=== PATIENT | female | born 1945 | race Hispanic/Latino ===

== ENCOUNTER 2017-10-21 12:56 | Outpatient (CLI) | payer MEDICARE | END 2017-10-21 12:57 | disposition home or self-care (01) | LOC: BICCT 12:56 | PROVIDERS: ATTEND Internal Medicine | DX: J32.9 Chronic sinusitis, unspecified (principal); M26.623 Arthralgia of bilateral temporomandibular joint ==

== ENCOUNTER 2018-07-13 13:19 | Outpatient (CLI) | payer MEDICARE | END 2018-07-13 13:20 | disposition home or self-care (01) | LOC: BICMAMMO 13:19 | PROVIDERS: ATTEND Internal Medicine | DX: Z12.31 Encounter for screening mammogram for malignant neoplasm of breast (principal); R92.1 Mammographic calcification found on diagnostic imaging of breast; Z80.3 Family history of malignant neoplasm of breast | CPT/HCPCS: 77063; 77067 ==

== ENCOUNTER 2019-02-24 10:52 | Outpatient (CLI) | payer MEDICARE ==
--- NOTE | 2019-02-24 12:46 | RAD ---
CHEST 2 VIEWS: Date: 02/24/19 HISTORY: Cough. COMPARISON: Chest radiograph from 2012. FINDINGS: Lungs are clear. No pneumothorax or effusion. Cardiac silhouette and mediastinal contours within norm al limits. Calcified right hilar lymph nodes. No acute osseous abnormality. IMPRESSION: No acute intrathoracic abnormality. POS: [facility]
== END 2019-02-24 10:53 | disposition home or self-care (01) ==
LOC: BICRAD 10:52
PROVIDERS: ATTEND Internal Medicine
DX: R05 Cough (principal)
CPT/HCPCS: 71046

== ENCOUNTER 2020-07-17 12:58 | Outpatient (CLI) | payer MEDICARE ==
--- NOTE | 2020-07-17 14:10 | MMO ---
Bilateral MAMMO Bilat Screen [facility]. CLINICAL HISTORY: Patient is 74 years old and is seen for screening. The patient has no family history of breast cancer. The patient has no personal history of cancer. VIEWS: The views performed were: bilateral craniocaudal with tomosynthesis and bilateral mediolateral oblique with tomosynthesis. FILMS COMPARED: The present examination has been compared to prior imaging studies performed at [facility] on 03/29/2015, 04/05/2016, 04/07/2017 and 07/13/2018. This study has been interpreted with the assistance of computer-aided detection. MAMMOGRAM FINDINGS: There are scattered fibroglandular densities. There are no suspicious masses, suspicious calcifications, or new areas of architectural distortion. IMPRESSION: THERE IS NO MAMMOGRAPHIC EVIDENCE OF MALIGNANCY. A ROUTINE FOLLOW-UP MAMMOGRAM IN 1 YEAR IS RECOMMENDED. THE RESULTS OF THIS EXAM WERE SENT TO THE PATIENT. ACR BI-RADS Category 1 - Negative MAMMOGRAPHY NOTE: 1. A negative mammogram report should not delay a biopsy if a dominant of clinically suspicious mass is present. 2. Approximately 10% to 15% of breast cancers are not detected by mammography. 3. Adenosis and dense breasts may obscure an underlying neoplasm. Reported by: DIXON FRANK MD Electonically Signed: [id number]
== END 2020-07-17 12:59 | disposition home or self-care (01) ==
LOC: BICMAMMO 12:58
PROVIDERS: ATTEND Family Medicine
DX: Z12.31 Encounter for screening mammogram for malignant neoplasm of breast (principal)
CPT/HCPCS: 77063; 77067

== ENCOUNTER 2021-12-10 11:47 | Outpatient (CLI) | payer MEDICARE | END 2021-12-10 11:48 | disposition home or self-care (01) | LOC: BICMAMMO 11:47 | PROVIDERS: ATTEND Family Medicine | DX: Z12.31 Encounter for screening mammogram for malignant neoplasm of breast (principal) | CPT/HCPCS: 77063; 77067 ==

== ENCOUNTER 2022-12-27 13:51 | Outpatient (CLI) | payer MEDICARE | END 2022-12-27 13:52 | disposition home or self-care (01) | LOC: BICMAMMO 13:51 | PROVIDERS: ATTEND Internal Medicine Cardiovascular Disease | DX: Z12.31 Encounter for screening mammogram for malignant neoplasm of breast (principal) | CPT/HCPCS: 77063; 77067 ==

== ENCOUNTER 2023-07-03 09:06 | Outpatient (CLI) | payer MEDICARE ==
[2023-07-03] MEDS ORDERED: diphenhydrAMINE 50 MG/ML VIAL ONE (10:47)
[2023-07-03] MEDS ORDERED: Iopamidol 370 76% 100 ML VIAL ONE (13:45)
== END 2023-07-03 09:07 | disposition home or self-care (01) ==
LOC: CT 09:06
PROVIDERS: ATTEND Otolaryngology
DX: H90.3 Sensorineural hearing loss, bilateral (principal); R20.0 Anesthesia of skin; J32.3 Chronic sphenoidal sinusitis
CPT/HCPCS: 70470; 70491; J1200; Q9967

== ENCOUNTER 2023-10-21 11:19 | Inpatient (IN) | payer MEDICARE ==
[2023-10-21] MEDS ORDERED: Ondansetron PF 4 MG/2 ML Vial IVP PRN (12:13)
[2023-10-21] MEDS ORDERED: traMADol HCl 50 MG TAB PO PRN ×2 (12:13→18:52)
[2023-10-21] MEDS ORDERED: Piperacillin/Tazobactam 4.5 GM VIAL ONE (12:17)
[2023-10-21] MEDS ORDERED: Morphine 4 MG/ML VIAL ONE (12:17)
[2023-10-21] MEDS ORDERED: Sodium Chloride 0.9% 100 ML ONE ×2 (12:17→14:27)
[2023-10-21] MEDS ORDERED: Ondansetron PF 4 MG/2 ML Vial ONE ×2 (12:17→15:47)
[2023-10-21 12:34] LABS: #Basophils Less than 0.03 10x3/uL (0.0-0.2); %Basophils 0.2 % (0.0-1.0); %Eosinophils 0.8 % (0.0-10.0); %Monocytes 4.3 % (0.0-10.0); %Neutrophils 82.3 % (42.0-75.0); Hematocrit 35.7 % (36.0-47.0); Hemoglobin 12.2 g/dL (12.0-16.0); Mean Corpuscular HGB CONC 34.2 g/dL (32.0-36.0); Mean Corpuscular Hemoglobin 29.7 pg (27.0-31.0); Mean Corpuscular Volume 86.9 fL (78.0-98.0); Mean Platelet Volume 9.3 fL (7.4-10.4); Platelet Count 493 10x3/uL (130-400); RBC Distribution Width 14.7 % (11.5-14.5); Red Blood Cell (RBC) Count 4.11 mill/uL (4.20-5.40)
[2023-10-21 12:56] LABS: Globulin 3.7 g/dL (2.4-3.5)
[2023-10-21 13:00] LABS: ALT (SGPT) 37 U/L (8-55); AST (SGOT) 19 U/L (5-34); Albumin 2.7 g/dL (3.4-4.8); Alkaline Phosphatase 75 U/L (40-110); Anion Gap 12 mmol/L (10-20); BUN (Urea Nitrogen) 5 mg/dL (9.8-20.1); Bilirubin, Total 0.8 mg/dL (0.2-1.2); Calc. Creatinine Clearance 0 mL/min (70-130); Calcium 8.9 mg/dL (7.8-10.44); Carbon Dioxide 22 mmol/L (23-31); Chloride 103 mmol/L (98-107); Estimated GFR 92; Glucose 133 mg/dL (83-110); Potassium 3.3 mmol/L (3.5-5.1); Protein, Total 6.4 g/dL (5.8-8.1); Sodium 134 mmol/L (136-145)
[2023-10-21] MEDS ORDERED: fentaNYL 50 mcg/mL 1 mL Vial ONE ×3 (13:36→17:42)
[2023-10-21] MEDS ORDERED: cefOXitin 2 GM VIAL ONE (14:26)
[2023-10-21] MEDS ORDERED: PROPOFOL 20 ML ONE (14:49)
[2023-10-21] MEDS ORDERED: Rocuronium Bromide 10 MG/ML (10ML VIAL) ONE (14:49)
[2023-10-21] MEDS ORDERED: SUCCINYLCHOLINE/SOD CL,ISO/PF 200 MG/10 ML SYRINGE FS ONE (14:49)
[2023-10-21] MEDS ORDERED: Lidocaine 1% PF 5 ML VIAL ONE (14:49)
[2023-10-21] MEDS ORDERED: fentaNYL PF 100 MCG/2 ML SYRINGE ONE (14:49)
[2023-10-21] MEDS ORDERED: Vasopressin 20 UNITS/ML VIAL ONE (15:27)
[2023-10-21] MEDS ORDERED: PHENYLEPHRINE-NS 100 MCG/ML 10 ML SYRINGE ONE (15:29)
[2023-10-21] MEDS ORDERED: Dexamethasone 4 mg/ml Vial ONE (15:47)
[2023-10-21] MEDS ORDERED: SUGAMMADEX SODIUM 200 MG/2 ML VIAL ONE (16:44)
[2023-10-21] MEDS ORDERED: HYDROmorphone 0.5 MG/0.5 ML SYRINGE SLOW IVP PRN (17:04)
[2023-10-21] MEDS ORDERED: HYDROmorphone 0.5 MG/0.5 ML SYRINGE ONE (18:12)
[2023-10-21 20:09] VITALS: BMI 33.3
[2023-10-21] MEDS: Morphine 4 MG/ML VIAL SLOW IVP PRN (20:25)
[2023-10-21] MEDS: Atorvastatin Calcium 10 MG TAB PO SCH (20:25)
[2023-10-21] MEDS: Potassium Chloride 20 MEQ in Premix 1 BAG IVPB SCH (20:26)
[2023-10-21] MEDS: Sodium Chloride 0.9% 1,000 ML IV SCH (20:31)
[2023-10-21] MEDS: Piperacillin/Tazobactam 3.375 GM in Sodium Chloride 0.9% 100 ML IVPB SCH (20:37)
[2023-10-22] MEDS: traMADol HCl 50 MG TAB PO SCH (00:30)
[2023-10-22 06:28] LABS: Hematocrit 35.7 % (36.0-47.0); Hemoglobin 12.1 g/dL (12.0-16.0); Mean Corpuscular HGB CONC 33.9 g/dL (32.0-36.0); Mean Corpuscular Volume 88.6 fL (78.0-98.0); Mean Platelet Volume 9.6 fL (7.4-10.4); Platelet Count 567 10x3/uL (130-400); RBC Distribution Width 15.4 % (11.5-14.5); Red Blood Cell (RBC) Count 4.03 mill/uL (4.20-5.40)
[2023-10-22 06:46] LABS: Phosphorus 4.4 mg/dL (2.3-4.7)
[2023-10-22 06:49] LABS: Anion Gap 15 mmol/L (10-20); BUN (Urea Nitrogen) 10 mg/dL (9.8-20.1); Calc. Creatinine Clearance 72 mL/min (70-130); Calcium 7.9 mg/dL (7.8-10.44); Carbon Dioxide 19 mmol/L (23-31); Chloride 106 mmol/L (98-107); Estimated GFR 71; Glucose 146 mg/dL (83-110); Magnesium 1.5 mg/dL (1.6-2.6); Potassium 4.4 mmol/L (3.5-5.1); Sodium 136 mmol/L (136-145)
[2023-10-22 06:52] LABS: Band 21 % (5-11); Burr Cells SLIGHT = 2-5 cells HPF (0-1); Lymphocytes 2 % (21-51); Monocytes 7 % (0-10); Neutrophil 70 % (42-75); Platelet Adequacy Comment Platelets Increased
[2023-10-22] MEDS: Magnesium Sulfate In Water 4 GM in Premix 1 BAG IVPB SCH (08:43)
[2023-10-22] MEDS: Famotidine/PF 20 mg/2ml Vial SLOW IVP SCH (08:44)
[2023-10-22] MEDS: Enoxaparin 40 MG (0.4 mL) SYRINGE SC SCH (08:44)
[2023-10-22] MEDS: Aspirin Chewable 81 MG TAB PO SCH (08:44)
[2023-10-22 14:42] VITALS: BMI 33.3
[2023-10-23] MEDS: Losartan 25 MG TAB PO SCH (10:24)
[2023-10-23] MEDS: Famotidine 20 MG TAB PO SCH (10:24)
[2023-10-23] MEDS ORDERED: Acetaminophen 325 MG TAB PO SCH (12:00)
[2023-10-23] MEDS: Acetaminophen 500 MG TAB PO SCH (13:30)
[2023-10-23] MEDS: Ketorolac Tromethamine 30 MG (1 mL) VIAL ONE (13:33)
[2023-10-23] MEDS: Lactated Ringer's 1,000 ML IV SCH (13:41)
[2023-10-23] MEDS ORDERED: Ibuprofen 200 MG TAB PO SCH (14:00)
[2023-10-23] MEDS: Ketorolac Tromethamine 30 MG (1 mL) VIAL IVP SCH (18:48)
[2023-10-23] MEDS: Phenol 177 ML BOT PO PRN (23:26)
[2023-10-24 05:02] LABS: #Basophils 0.03 10x3/uL (0.0-0.2); %Basophils 0.2 % (0.0-1.0); %Eosinophils 2.7 % (0.0-10.0); %Lymphocytes 5.3 % (21.0-51.0); %Monocytes 6.7 % (0.0-10.0); %Neutrophils 84.6 % (42.0-75.0); Hematocrit 32.2 % (36.0-47.0); Hemoglobin 10.9 g/dL (12.0-16.0); Mean Corpuscular HGB CONC 33.9 g/dL (32.0-36.0); Mean Corpuscular Hemoglobin 29.5 pg (27.0-31.0); Mean Corpuscular Volume 87.3 fL (78.0-98.0); Mean Platelet Volume 9.2 fL (7.4-10.4); Platelet Count 541 10x3/uL (130-400); RBC Distribution Width 15.5 % (11.5-14.5); Red Blood Cell (RBC) Count 3.69 mill/uL (4.20-5.40)
[2023-10-24 05:27] LABS: Anion Gap 14 mmol/L (10-20); BUN (Urea Nitrogen) 14 mg/dL (9.8-20.1); Calc. Creatinine Clearance 94 mL/min (70-130); Calcium 8.7 mg/dL (7.8-10.44); Carbon Dioxide 20 mmol/L (23-31); Chloride 110 mmol/L (98-107); Estimated GFR 92; Glucose 86 mg/dL (83-110); Potassium 4.1 mmol/L (3.5-5.1); Sodium 140 mmol/L (136-145)
[2023-10-24] MEDS ORDERED: Morphine 4 MG/ML VIAL SLOW IVP PRN (09:39)
[2023-10-24] MEDS: Acetaminophen 500 MG TAB PO SCH ×2 (11:53→18:07)
[2023-10-24] MEDS: traMADol HCl 50 MG TAB PO PRN (21:02)
[2023-10-25 05:47] LABS: #Basophils 0.03 10x3/uL (0.0-0.2); %Basophils 0.2 % (0.0-1.0); %Eosinophils 0.9 % (0.0-10.0); %Lymphocytes 3.3 % (21.0-51.0); %Monocytes 6.8 % (0.0-10.0); %Neutrophils 88.2 % (42.0-75.0); Hemoglobin 11.2 g/dL (12.0-16.0); Mean Corpuscular HGB CONC 32.9 g/dL (32.0-36.0); Mean Corpuscular Hemoglobin 29.5 pg (27.0-31.0); Mean Corpuscular Volume 89.5 fL (78.0-98.0); Mean Platelet Volume 9.1 fL (7.4-10.4); Platelet Count 627 10x3/uL (130-400); RBC Distribution Width 15.3 % (11.5-14.5)
[2023-10-25] MEDS: Losartan 25 MG TAB PO SCH (08:23)
[2023-10-25] MEDS: Famotidine 20 MG TAB PO SCH (21:45)
[2023-10-26] MEDS: Amoxicillin/Potassium Clav 875 MG TAB PO SCH ×2 (09:46→20:35)
[2023-10-26] MEDS: Ibuprofen 600 MG TAB PO PRN (09:47)
[2023-10-26] MEDS: Saccharomyces boulardii 250 MG CAP PO SCH (09:48)
[2023-10-26] MEDS ORDERED: traMADol HCl 50 MG TAB PO PRN (11:21)
[2023-10-26] MEDS ORDERED: Acetaminophen 500 MG TAB PO PRN (11:21)
[2023-10-27] MEDS: Ibuprofen 200 MG TAB PO PRN (00:05)
[2023-10-27] MEDS: Pantoprazole DR 40 MG TAB PO SCH (08:42)
[2023-10-27] MEDS: Losartan 25 MG TAB PO SCH (08:42)
[2023-10-28 15:18] VITALS: BP 133/77; TEMP 98.5
== END 2023-10-28 18:25 | disposition home or self-care (01) | DRG 908 ==
LOC: ERS 11:19 → SDC/OP 13:17 → SJJU 13:17
PROVIDERS: ADMIT Surgery; ATTEND Surgery
PROC: 0WQFXZZ Repair Abdominal Wall, External Approach (ICD-10-PCS; principal; 2023-10-22)
PROC: 3E033XZ Introduction of Vasopressor into Peripheral Vein, Percutaneous Approach (ICD-10-PCS; 2023-10-22)
DX: T81.32XA Disruption of internal operation (surgical) wound, not elsewhere classified, initial encounter (principal); K91.71 Accidental puncture and laceration of a digestive system organ or structure during a digestive system procedure; K59.00 Constipation, unspecified; I10 Essential (primary) hypertension; E78.5 Hyperlipidemia, unspecified; E11.9 Type 2 diabetes mellitus without complications; D72.829 Elevated white blood cell count, unspecified; E87.8 Other disorders of electrolyte and fluid balance, not elsewhere classified; Z98.890 Other specified postprocedural states; Z90.49 Acquired absence of other specified parts of digestive tract
CPT/HCPCS: 36415; 36416; 80048; 80053; 83735; 84100; 85025; 94760; 96374; 96375; 97139; J0694; J1100; J1170; J1650; J1885; J2270; J2405; J2543; J2704; J3010; J3475; J3480; J3490; J7050; J7120; S0028

== ENCOUNTER 2023-12-02 09:24 | Outpatient (CLI) | payer MEDICARE | END 2023-12-02 09:25 | disposition home or self-care (01) | LOC: CT 09:24 | PROVIDERS: ATTEND Surgery | DX: K65.1 Peritoneal abscess (principal); K57.30 Diverticulosis of large intestine without perforation or abscess without bleeding; Z90.49 Acquired absence of other specified parts of digestive tract; Z90.710 Acquired absence of both cervix and uterus; R14.0 Abdominal distension (gaseous) | CPT/HCPCS: 74177 ==

== ENCOUNTER 2023-12-02 10:59 | Inpatient (IN) | payer MEDICARE ==
[2023-12-02 12:57] LABS: #Basophils 0.04 10x3/uL (0.0-0.2); %Basophils 0.4 % (0.0-1.0); %Eosinophils 1.3 % (0.0-10.0); %Lymphocytes 23.1 % (21.0-51.0); %Monocytes 8.5 % (0.0-10.0); %Neutrophils 66.3 % (42.0-75.0); Hematocrit 27.3 % (36.0-47.0); Mean Platelet Volume 9.5 fL (7.4-10.4); Platelet Count 447 10x3/uL (130-400)
[2023-12-02 13:03] LABS: ALT (SGPT) 5 U/L (8-55); AST (SGOT) 22 U/L (5-34); Albumin 2.4 g/dL (3.4-4.8); Alkaline Phosphatase 75 U/L (40-110); Anion Gap 11 mmol/L (10-20); BUN (Urea Nitrogen) 10 mg/dL (9.8-20.1); Bilirubin, Total 0.5 mg/dL (0.2-1.2); Calc. Creatinine Clearance 0 mL/min (70-130); Calcium 8.7 mg/dL (7.8-10.44); Carbon Dioxide 21 mmol/L (23-31); Chloride 107 mmol/L (98-107); Estimated GFR 93; Globulin 3.8 g/dL (2.4-3.5); Glucose 97 mg/dL (83-110); Lipase 23 U/L (8-78); Potassium 3.3 mmol/L (3.5-5.1); Protein, Total 6.2 g/dL (5.8-8.1); Sodium 136 mmol/L (136-145)
[2023-12-02] MEDS ORDERED: Piperacillin/Tazobactam 4.5 GM VIAL ONE ×2 (13:35→14:31)
[2023-12-02] MEDS ORDERED: Sodium Chloride 0.9% 100 ML ONE ×2 (13:37→14:31)
[2023-12-02] MEDS ORDERED: Ondansetron PF 4 MG/2 ML Vial IVP PRN (13:44)
[2023-12-02] MEDS ORDERED: traMADol HCl 50 MG TAB PO PRN (13:44)
[2023-12-02] MEDS ORDERED: Morphine 4 MG/ML VIAL SLOW IVP PRN (13:56)
[2023-12-02 14:18] LABS: Bilirubin Negative (Negative); Blood, Urine Negative (Negative); CAUTI Indications for Culture Dysuria,urgency,freq; Clarity Clear (Clear); Glucose, Urine (Dipstick) Normal (Negative); Ketone, Urine Negative (Negative); Leukocyte 250 Leu/uL (Negative); Nitrite Negative (Negative); Protein, Urine (Dipstick) 10 mg/dL (Neg-Trace); Squamous Epithelial None Seen HPF (0-3); Urobilinogen Normal mg/dL (Less than 2); WBC/HPF Greater than 50 HPF (0-3); pH, Urine 7.5 (5.0-9.0)
[2023-12-02 14:35] LABS: Bacteria/HPF 4+ HPF (None Seen)
[2023-12-02 14:37] LABS: Specific Gravity, Urine 1.044 (1.002-1.036); Urine Culture Reflex Yes Yes
[2023-12-02 16:45] VITALS: BMI 29.7
[2023-12-02] MEDS: Potassium Chloride 20 MEQ in Premix 1 BAG IVPB SCH (19:26)
[2023-12-02] MEDS: Sodium Chloride 0.9% 1,000 ML IV SCH (19:27)
[2023-12-02] MEDS: TETANUS, DIPHTHERIA TOX,ADULT (TDVAX) 0.5 ML VIAL IM ONE (19:36)
[2023-12-02] MEDS: Acetaminophen 325 MG TAB PO SCH (22:56)
[2023-12-02] MEDS: Aspirin Chewable 81 MG TAB PO SCH (22:56)
[2023-12-02] MEDS: Atorvastatin Calcium 10 MG TAB PO SCH (22:56)
[2023-12-03 05:28] LABS: #Basophils 0.03 10x3/uL (0.0-0.2); %Basophils 0.4 % (0.0-1.0); %Eosinophils 2.8 % (0.0-10.0); %Lymphocytes 23.7 % (21.0-51.0); %Monocytes 11.1 % (0.0-10.0); %Neutrophils 61.6 % (42.0-75.0); Hematocrit 25.9 % (36.0-47.0); Hemoglobin 8.7 g/dL (12.0-16.0); Mean Corpuscular HGB CONC 33.6 g/dL (32.0-36.0); Mean Corpuscular Hemoglobin 30.2 pg (27.0-31.0); Mean Corpuscular Volume 89.9 fL (78.0-98.0); Platelet Count 377 10x3/uL (130-400); RBC Distribution Width 16.9 % (11.5-14.5); Red Blood Cell (RBC) Count 2.88 mill/uL (4.20-5.40)
[2023-12-03 05:46] LABS: INR-International Normal Ratio 1.2; Prothrombin Time 15.3 sec (12.0-14.7)
[2023-12-03 05:47] LABS: Anion Gap 12 mmol/L (10-20); BUN (Urea Nitrogen) 7 mg/dL (9.8-20.1); Calc. Creatinine Clearance 98 mL/min (70-130); Calcium 8.1 mg/dL (7.8-10.44); Carbon Dioxide 19 mmol/L (23-31); Chloride 111 mmol/L (98-107); Estimated GFR 95; Glucose 98 mg/dL (83-110); Potassium 3.1 mmol/L (3.5-5.1); Sodium 139 mmol/L (136-145)
[2023-12-03] MEDS: Potassium Chloride 20 MEQ TAB PO SCH (06:39)
[2023-12-03] MEDS ORDERED: Electrolyte Replacement Protocol 1 EACH FS SCH (08:00)
[2023-12-03] MEDS: cefTRIAXone\\ROCEPHIN 1 GM in Sodium Chloride 0.9% 100 ML IVPB SCH (21:09)
[2023-12-04 05:28] LABS: Hematocrit 27.3 % (36.0-47.0); Platelet Count 419 10x3/uL (130-400)
[2023-12-04 06:09] LABS: Anion Gap 8 mmol/L (10-20); BUN (Urea Nitrogen) 6 mg/dL (9.8-20.1); Calc. Creatinine Clearance 89 mL/min (70-130); Calcium 8.3 mg/dL (7.8-10.44); Carbon Dioxide 21 mmol/L (23-31); Chloride 110 mmol/L (98-107); Estimated GFR 93; Glucose 90 mg/dL (83-110); Potassium 3.8 mmol/L (3.5-5.1); Sodium 135 mmol/L (136-145)
[2023-12-04 17:52] VITALS: BP 118/70; TEMP 97.9
[2023-12-05] MEDS ORDERED: Losartan 25 MG TAB PO SCH (09:00)
== END 2023-12-04 19:30 | disposition home health service (06) | DRG 863 ==
LOC: ERS 10:59 → SJJU 15:40
PROVIDERS: ADMIT Student in an Organized Health Care Education/Training Program; ATTEND Student in an Organized Health Care Education/Training Program
DX: T81.40XA Infection following a procedure, unspecified, initial encounter (principal); K91.872 Postprocedural seroma of a digestive system organ or structure following a digestive system procedure; L02.211 Cutaneous abscess of abdominal wall; S30.1XXA Contusion of abdominal wall, initial encounter; E11.9 Type 2 diabetes mellitus without complications; K21.9 Gastro-esophageal reflux disease without esophagitis; E87.6 Hypokalemia; E87.5 Hyperkalemia; I10 Essential (primary) hypertension; Z90.710 Acquired absence of both cervix and uterus; Z90.49 Acquired absence of other specified parts of digestive tract; Z98.890 Other specified postprocedural states
CPT/HCPCS: 36415; 74177; 80048; 80053; 81001; 83605; 83690; 85014; 85018; 85025; 85049; 85610; 87040; 87077; 87086; 87186; 93005; 96374; 97139; J0696; J2543; J3480; J3490; J7050; Q9967

== ENCOUNTER 2024-05-20 15:11 | Outpatient (CLI) | payer MEDICARE | END 2024-05-20 15:12 | disposition home or self-care (01) | LOC: BICMAMMO 15:11 | PROVIDERS: ATTEND Family Medicine | DX: Z78.0 Asymptomatic menopausal state (principal); M85.851 Other specified disorders of bone density and structure, right thigh | CPT/HCPCS: 77080 ==

== ENCOUNTER 2024-06-22 08:48 | Outpatient (CLI) | payer MEDICARE ==
[2024-06-22] MEDS ORDERED: Iopamidol 370 76% 100 ML VIAL ONE (15:16)
== END 2024-06-22 08:49 | disposition home or self-care (01) ==
LOC: CT 08:48
PROVIDERS: ATTEND Family Medicine
DX: R10.84 Generalized abdominal pain (principal); K43.9 Ventral hernia without obstruction or gangrene; K57.30 Diverticulosis of large intestine without perforation or abscess without bleeding; I70.90 Unspecified atherosclerosis
CPT/HCPCS: 74177